=== PATIENT | female | born 1995 | race Caucasian/White ===

== ENCOUNTER 2016-10-17 00:47 | Emergency (ER) | payer OTHER ==
[2016-10-17] MEDS ORDERED: 0.9 % SODIUM CHLORIDE 1,000 ML BAG IV ONE (00:59)
[2016-10-17] MEDS ORDERED: ONDANSETRON HCL IV 4 MG/2 ML VIAL IVP ONE (01:00)
[2016-10-17] MEDS ORDERED: HYDROMORPHONE HCL 1 MG/ML CPJ IVP ONE (01:02)
--- NOTE | 2016-10-17 01:04 | Emergency Department Record ---
History of Present Illness - General Chief Complaint: Abdominal Pain Stated Complaint: EPIGASTRIC PAIN RADIATE TO BACK Time Seen by Provider: 10/17/16 00:56 Source: Patient - History of Present Illness Initial Comments: Epigastric and RUQ abdominal pain began about an hour ago around 12 midnight associated with nausea, and radiating to back between the shoulder blades. She ate some chocolate and peanut butter candies several hours earlier. Also had similar symptoms about 10 days ago, went to another local [facility] where a cardiac etiology was ruled out. 5 F's risks:She delivered her second child in August of this year. [place]. Female. Fair. Family history of mom with GB removed. MD Complaint: Abdominal pain - Related Data Previous Rx's Medication Instructions Recorded Phenobarb/Hyoscy/Atropine/Scop 16.2 mg PO TID PRN #150 ml 10/17/16 [ Elixir] Allergies Allergy/AdvReac Type Severity Reaction Status Date / Time amoxicillin trihydrate Allergy VOMITING Verified 04/12/16 20:56 [From Augmentin] potassium clavulanate Allergy VOMITING Verified 04/12/16 20:56 [From Augmentin] Review of Systems Reviewed: No additional complaints except as noted below Constitutional: Reports: As per HPI. Denies: Chills, Fever, Malaise, Night sweats, Weakness, Weight change Eyes: Reports: As per HPI. Denies: Eye discharge, Eye pain, Photophobia, Vision change ENT: Reports: As per HPI. Denies: Congestion, Dental pain, Ear pain, Epistaxis , Hearing loss, Throat pain Respiratory: Reports: As per HPI. Denies: Cough, Dyspnea, Hemoptysis, Stridor, Wheezes Cardiovascular: Reports: As per HPI. Denies: Arrhythmia, Chest pain, Dyspnea on exertion, Edema, Murmurs, Orthopnea, Palpitations, Paroxysmal nocturnal dyspnea, Rheumatic Fever, Syncope Endocrine: Reports: As per HPI. Denies: Fatigue, Heat or cold intolerance, Polydipsia, Polyuria Gastrointestinal: Reports: As per HPI. Denies: Abdominal pain, Constipation, Diarrhea, Hematemesis, Hematochezia, Melena, Nausea, Vomiting Genitourinary: Reports: As per HPI. Denies: Abnormal menses, Discharge, Dyspareunia, Dysuria, Frequency, Hematuria, Incontinence, Retention, Urgency Musculoskeletal: Reports: As per HPI. Denies: Arthralgia, Back pain, Gout, Joint swelling, Myalgia, Neck pain Skin: Reports: As per HPI. Denies: Bruising, Change in color, Change in hair/ nails, Lesions, Pruritus, Rash Neurological: Reports: As per HPI. Denies: Abnormal gait, Confusion, Headache, Numbness, Paresthesias, Seizure, Tingling, Tremors, Vertigo, Weakness Psychiatric: Reports: As per HPI. Denies: Anxiety, Auditory hallucinations, Depression, Homicidal thoughts, Suicidal thoughts, Visual hallucinations Hematological/Lymphatic: Reports: As per HPI. Denies: Anemia, Blood Clots, Easy bleeding, Easy bruising, Swollen glands Past Medical History - SOCIAL HISTORY Smoking Status: Never smoker Drug Use: None - RESPIRATORY Hx Respiratory Disorders: No - CARDIOVASCULAR Hx Cardio Disorders: No - NEURO Hx Neuro Disorders: No - GI Hx GI Disorders: No - Hx Genitourinary Disorders: No - ENDOCRINE Hx Endocrine Disorders: No - MUSCULOSKELETAL Hx Musculoskeletal Disorders: No - PSYCH Hx Psych Problems: No - HEMATOLOGY/ONCOLOGY Hx Hematology/Oncology Disorders: No Physical Exam - General General Appearance: Alert, Oriented x3, Cooperative, Moderate distress - Head Head exam: Normal inspection - Eye Eye exam: Normal appearance, PERRL Pupils: Normal accommodation - ENT ENT exam: Normal exam, Mucous membranes moist, Normal external ear exam, Normal orophraynx, TM's normal bilaterally Ear exam: Normal external inspection. negative: External canal tenderness Nasal Exam: Normal inspection. negative: Discharge, Sinus tenderness Mouth exam: Normal external inspection, Tongue normal Teeth exam: Normal inspection. negative: Dental caries Throat exam: Normal inspection. negative: Tonsillar erythema, Tonsillar exudate - Neck Neck exam: Normal inspection, Full ROM. negative: Tenderness - Respiratory Respiratory exam: Normal lung sounds bilaterally. negative: Respiratory distress - Cardiovascular Cardiovascular Exam: Regular rate, Normal rhythm, Normal heart sounds - GI/Abdominal GI/Abdominal exam: Soft, Normal bowel sounds, Tenderness (epigastric and RUQ tenderness on palpation.) - Rectal Rectal exam: Deferred - exam: Deferred - Extremities Extremities exam: Normal inspection, Full ROM, Normal capillary refill. negative: Tenderness - Back Back exam: Reports: Normal inspection, Full ROM. Denies: Muscle spasm, Rash noted, Tenderness - Neurological Neurological exam: Alert, Normal gait, Oriented X3, Reflexes normal - Psychiatric Psychiatric exam: Normal affect, Normal mood - Skin Skin exam: Dry, Intact, Normal color, Warm Course - Reevaluation(s) Reevaluation #1: Patient states her nausea and pain both have greatly improved. She is drinking contrast for her CT. 10/17/16 01:42 Medical Decision Making - Management Options MDM Management: Additional Work-up Planned (e.g. ADM/Transfer/OP Study) ( Schedule ultrasound through PCP.) - Data Complexity MDM Data: Labs Ordered and/or Reviewed, X-Ray Ordered and/or Reviewed (Contrast CTAbd/Pelvis: DIlatation of the proximal and mid right ureter which could be physiologic. Otherwise no significan abnormality. Per [facility]. ) - Lab Data Result diagrams: 10/17/16 01:00 10/17/16 01:00 Disposition Disposition: Discharge Clinical Impression: Recurrent biliary colic Disposition: Home, Self-Care Condition: (1) Good Instructions: Biliary Colic (ED) Additional Instructions: Fat free diet. Follow with your PCP to schedule an abdominal ultrasound. Donnatol as directed if needed for biliary colic pain. Prescriptions: Phenobarb/Hyoscy/Atropine/Scop [ Elixir] 16.2 mg PO TID PRN #150 ml PRN Reason: biliary colic Forms: Patient Portal Access
[2016-10-17 01:11] LABS: HEMATOCRIT 40.4 % (35.0-47.0); HEMOGLOBIN 13.4 gm/dl (11.6-16.0); MEAN CELL VOLUME 88.4 fl (81-97); MEAN CORPUSCULAR HEMOGLOBIN 29.3 pg (27-33); MEAN CORPUSCULAR HGB CONC 33.2 g/dl (32-36); PLATELET COUNT 265 K/uL (130-400); RED BLOOD COUNT 4.57 M/uL (3.80-5.40); RED CELL DISTRIBUTION WIDTH 12.4 % (11.5-14.5); WHITE BLOOD COUNT W/O DIFF 9.2 K/uL (4.2-12.2)
[2016-10-17 01:24] LABS: URINE APPEARANCE CLEAR; URINE BILIRUBIN NEGATIVE (NEGATIVE); URINE BLOOD NEGATIVE (NEGATIVE); URINE COLOR YELLOW; URINE GLUCOSE (UA) NEGATIVE (NEGATIVE); URINE KETONE NEGATIVE (NEGATIVE); URINE LEUKOCYTE ESTERASE NEGATIVE (NEGATIVE); URINE NITRITE NEGATIVE (NEGATIVE); URINE UROBILINOGEN 0.2 E.U./dL (0.20 - 1.00)
[2016-10-17 01:29] LABS: HCG,QUALITATIVE URINE NEGATIVE (NEGATIVE)
[2016-10-17 01:30] LABS: ALB/GLOB RATIO 1.4 (1.1-1.8); ALBUMIN 4.6 gm/dL (3.5-5.0); ALKALINE PHOSPHATASE 102 U/L (38-126); ALT/SGPT 37 U/L (9-52); AMYLASE 55 U/L (30-110); ANION GAP 9.5 (7-16); AST/SGOT 30 U/L (14-36); BILIRUBIN,TOTAL 0.42 mg/dL (0.2-1.3); BLOOD UREA NITROGEN 12 mg/dL (7-17); CARBON DIOXIDE 24.5 mmol/L (22-30); CREATININE 0.7 mg/dL (0.52-1.04); EST GLOMERULAR FILTRATION RATE > 60 ml/min; GLUCOSE,RANDOM 100 mg/dL (70-110); LIPASE 100 U/L (23-300); TOTAL PROTEIN 7.8 gm/dL (6.3-8.2)
[2016-10-17 01:35] LABS: URINE MUCUS LIGHT; URINE WBC 0 - 2 (0-2/hpf)
--- NOTE | 2016-10-18 22:10 | CT SCAN REPORT ---
EXAM: CT SCAN ABDOMEN/PELVIS W CONTRAST HISTORY: RIGHT UPPER QUADRANT ABDOMINAL PAIN AFTER EATING. BACK PAIN. TECHNIQUE: Standard CT imaging of the abdomen and pelvis was performed with oral and intravenous contrast. 100 mL of Omnipaque-300 were administered. COMPARISON: None. FINDINGS: The lung bases are clear. The liver parenchyma is normal. The gallbladder is mildly distended but otherwise unremarkable. There is no biliary ductal dilatation. The pancreas, spleen, and adrenal glands are normal. There is mild dilatation of the proximal right ureter down to the level of the iliac vessels. The etiology is uncertain. There is no obstructing calculus or perinephric fat stranding. This may represent physiologic dilatation. The left kidney and ureter are unremarkable. The aorta is normal in caliber. There is no retroperitoneal lymphadenopathy. The stomach and epigastrium are normal. The large and small bowel loops are unremarkable. The appendix is not clearly seen, however, there is no evidence for acute appendicitis. The uterus and adnexa are normal. The patient is approximately one month . The urinary bladder is normal. There are no acute osseous abnormalities. IMPRESSION: 1. MILD DILATION OF THE PROXIMAL RIGHT URETER DOWN TO THE LEVEL OF THE ILIAC VESSELS OF UNCERTAIN ETIOLOGY. THIS MAY BE PHYSIOLOGIC. THERE IS NO OBSTRUCTING CALCULUS. 2. THE REMAINING PORTIONS OF THE ABDOMEN AND PELVIS ARE NORMAL. 3. NOT MENTIONED ABOVE, THERE IS A TINY FAT-CONTAINING UMBILICAL HERNIA. JOB NUMBER: [id number] [facility]
== END 2016-10-17 03:53 | disposition home or self-care (01) ==
LOC: ER 00:47
DX: K80.50 Calculus of bile duct without cholangitis or cholecystitis without obstruction (principal); R11.0 Nausea
CPT/HCPCS: 99284 ×2; 96374; 96375; 82150; 83690; 80053; 81001; 81025; 85027; 74177; Q9967; J2405; J1170; J7030

== ENCOUNTER 2017-01-07 00:49 | Emergency (ER) | payer OTHER ==
[2017-01-07] MEDS ORDERED: PREDNISONE 20 MG TAB PO ONE (01:00)
--- NOTE | 2017-01-07 01:06 | Emergency Department Record ---
History of Present Illness - General Chief complaint: Rash Stated complaint: RASH Time Seen by Provider: 01/07/17 01:00 Source: Patient Mode of Arrival: Ambulatory Limitations: No limitations - History of Present Illness Initial comments: 21 yo female presents to ED with a CC of an itchy rash to the left hand and left face for the past 3 hours. Patient reports a previous "really bad allergy to poison chyao, and wanted to catch it early". Patient denies fevers, chills, or recent illness. Patient denies difficulty breathing, wheezing, or throat swelling symptoms. MD complaint: Rash Onset/Timin -: Hour(s) Patient Tetanus UTD (within 5 yrs): Yes Location: Face, L hand Severity: Mild Quality: Other Consistency: Constant Improves with: None Worsens with: None Context: None Associated symptoms: Itching Treatments Prior to Arrival: None - Related Data Previous Rx's Medication Instructions Recorded Prednisone [Prednisone 20Mg] 20 mg PO TID #18 tab 01/07/17 Allergies Allergy/AdvReac Type Severity Reaction Status Date / Time amoxicillin trihydrate Allergy VOMITING Verified 04/12/16 20:56 [From Augmentin] potassium clavulanate Allergy VOMITING Verified 04/12/16 20:56 [From Augmentin] Travel Screening - Travel/Exposure Within Last 30 Days Have you traveled within the last 30 days?: No - Travel Symptoms Symptom Screening: None Review of Systems Constitutional: Denies: Chills, Fever, Malaise, Night sweats Eyes: Denies: Eye discharge, Eye pain ENT: Denies: Congestion, Ear pain, Epistaxis Respiratory: Denies: Cough, Dyspnea Cardiovascular: Denies: Chest pain, Dyspnea on exertion Endocrine: Denies: Fatigue, Heat or cold intolerance Gastrointestinal: Denies: Abdominal pain, Nausea, Vomiting Genitourinary: Denies: Incontinence, Retention Musculoskeletal: Denies: Arthralgia, Back pain, Gout, Joint swelling Skin: Reports: Rash. Denies: Bruising, Change in color, Change in hair/nails Neurological: Denies: Abnormal gait, Confusion, Headache, Seizure Psychiatric: Denies: Anxiety Hematological/Lymphatic: Denies: Anemia, Blood Clots Past Medical History - SOCIAL HISTORY Smoking Status: Never smoker - RESPIRATORY Hx Respiratory Disorders: No - CARDIOVASCULAR Hx Cardio Disorders: No - NEURO Hx Neuro Disorders: No - GI Hx GI Disorders: No - Hx Genitourinary Disorders: No - ENDOCRINE Hx Endocrine Disorders: No - MUSCULOSKELETAL Hx Musculoskeletal Disorders: No - PSYCH Hx Psych Problems: No - HEMATOLOGY/ONCOLOGY Hx Hematology/Oncology Disorders: No Family Medical History Any Significant Family History?: Yes Family Hx Comment (NOT TO BE USED IN PLACE OF ITEMS BELOW): Grandmother w/MS Hx Heart Disease: Grandparents Physical Exam - General General Appearance: Alert, Oriented x3, Cooperative, No acute distress Limitations: No limitations - Head Head exam: Atraumatic, Normocephalic, Other (mild erythema to the left face, no evidence for cellulitis on examination) Head exam detail: negative: Abrasion, Contusion, Chacon's sign, General tenderness, Hematoma, Laceration - Eye Eye exam: Normal appearance. negative: Conjunctival injection, Periorbital swelling, Periorbital tenderness, Scleral icterus - ENT Ear exam: negative: Auricular hematoma, Auricular trauma Nasal Exam: negative: Active bleeding, Discharge, Dried blood, Foreign body Mouth exam: negative: Drooling, Laceration, Muffled voice, Tongue elevation - Neck Neck exam: Normal inspection. negative: Meningismus, Tenderness - Respiratory Respiratory exam: Normal lung sounds bilaterally. negative: Rales, Respiratory distress, Rhonchi, Stridor - Cardiovascular Cardiovascular Exam: Regular rate, Normal rhythm, Normal heart sounds - GI/Abdominal GI/Abdominal exam: Soft. negative: Rebound, Rigid, Tenderness - Rectal Rectal exam: Deferred - exam: Deferred - Extremities Extremities exam: Other (mild erythema to the dorsum of the left hand). negative: Calf tenderness, Pedal edema, Tenderness - Back Back exam: Denies: CVA tenderness (R), CVA tenderness (L) - Neurological Neurological exam: Alert, Normal gait, Oriented X3 - Psychiatric Psychiatric exam: Normal affect, Normal mood - Skin Skin exam: Rash Type of lesion: negative: abrasion Distribution of rash: Face, LUE Course Vital Signs 01/07/17 00:58 Temperature 98.1 F Pulse Rate [ 78 Pulse Ox Probe] Respiratory 18 Rate Blood Pressure 124/80 [Left Arm] Pulse Ox 97 - Reevaluation(s) Reevaluation #1: 01/07/17 01:05 Examination appears c/w contact dermatitis, will treat with Prednisone for the next several days. No clinical evidence for allergic reaction, and the patient appears stable for discharge at this time. Disposition Disposition: Discharge Clinical Impression: Contact dermatitis Qualifiers: Contact dermatitis type: unspecified Contact dermatitis trigger: unspecified trigger Qualified Code(s): L25.9 - Unspecified contact dermatitis, unspecified cause Disposition: Home, Self-Care Condition: (2) Stable Instructions: Contact Dermatitis (ED) Additional Instructions: Return to ED if your symptoms worsen or if you have any concerns. Prednisone as directed. Follow-up with your family doctor in 3-5 days as directed. Prescriptions: Prednisone [Prednisone 20Mg] 20 mg PO TID #18 tab Forms: Patient Portal Access Time of Disposition: 01:08 Quality - Quality Measures Quality Measures: N/A - Blood Pressure Screening Does Patient Have Any of the Following: No Blood Pressure Classification: Pre-Hypertensive BP Reading Systolic Measurement: 124 Diastolic Measurement: 80 Screening for High Blood Pressure: < Pre-Hypertensive BP, F/U Documented > [ [id number]] Pre-Hypertensive Follow-up Interventions: Referral to alternative/primary care provider.
== END 2017-01-07 01:16 | disposition home or self-care (01) ==
LOC: ER 00:49
DX: L25.9 Unspecified contact dermatitis, unspecified cause (principal)
CPT/HCPCS: 99282; J7512